=== PATIENT | female | born 1970 | race Caucasian/White ===

== ENCOUNTER → 2020-06-10 | Emergency (ER) | payer OTHER ==
[~2020-06-10] VITALS: Ht 180.3 cm; Wt 99.8 kg
[~2020-06-10] MED LIST: ALDACTONE100 MG; ALLEGRA ALLERG180 MG PO; CARVEDILOL ER40 MG; CIPRO500 MG PO; CRESTOR10 MG; DULOXETINE HCL40 MG; FLAGYL500MG PO; INTESTINEX1 CA1 PO; LOSARTAN-HCTZ1 EACH; MEDROLPACK PO; MELOXICAM15 MG; PROTONIX40 MG PO; TOPROL XL50 M1; ZANAFLEX4 MG
== END | disposition home or self-care (01) ==
LOC: ER 09:50
DX: L50.8 Other urticaria (principal); Z03.818 Encounter for observation for suspected exposure to other biological agents ruled out; R07.0 Pain in throat